=== PATIENT | female | born 1965 | race American Indian/Alaskan Native ===

== ENCOUNTER 2018-05-24 10:51 | Emergency (ER) | payer OTHER ==
[2018-05-24 11:50] VITALS: BP 188/104
--- NOTE | 2018-05-24 13:31 | Emergency Department Report ---
ED Anxiety HPI - General Chief Complaint: Anxiety Stated Complaint: PANIC ATTACK Time Seen by Provider: 05/24/18 13:16 Source: patient Mode of arrival: Wheelchair - History of Present Illness Initial Comments: 53 yo F presents w/ panic attack. States she thought her daughter had gone missing. Was unable to get in touch with her, did not know where she was. Pt reports she began hyperventilating, feeling as if she could not breathe. Also states felt as if her heart was racing. Reports feeling lighteheaded and pressure in the top of her head. Eventually pt found her daughter here in the emergency room. States that now that she knows her daughter is safe, her symptoms have resolved. Reports previous hx of anxiety attack. MD Complaint: anxiety -: This morning Symptoms: dyspnea, palpitations, sense of impending doom, other (dizziness, headache) Previous History of Same: Yes Severity: moderate Quality: improving Provoking factors: emotional stress Improves With: nothing Worsens With: thinking about event Associated symptoms: denies: chest pain, diaphoresis, nausea/vomiting - Related Data Allergies/Adverse Reactions: Allergies Allergy/AdvReac Type Severity Reaction Status Date / Time latex Allergy Itching Verified 05/24/18 11:46 Sulfa (Sulfonamide Allergy Swelling Verified 05/24/18 11:46 Antibiotics) ED Review of Systems ROS: Stated complaint: PANIC ATTACK Other details as noted in HPI Comment: All other systems reviewed and negative Respiratory: shortness of breath Cardiovascular: palpitations. denies: chest pain Gastrointestinal: denies: nausea, vomiting Neurological: headache, other (lightheadedness) ED Past Medical Hx - Past Medical History Previous Medical History?: Yes Hx Hypertension: Yes Hx Arthritis: Yes Additional medical history: PANIC ATTACKS - Surgical History Hx Cholecystectomy: Yes Additional Surgical History: C SECTION - Social History Smoking Status: Never Smoker Substance Use Type: None ED Physical Exam - General Limitations: No Limitations ED Course Vital Signs 05/24/18 05/24/18 11:46 12:59 Temperature 98.6 F Pulse Rate 100 H Respiratory 18 16 Rate Blood Pressure 188/104 O2 Sat by Pulse 100 Oximetry ED Medical Decision Making - EKG Data -: EKG Interpreted by Me EKG shows normal: sinus rhythm, axis (nml), intervals (prolonged CT), QRS complexes (nml), ST-T waves (T wave inversion V2, otherwise nml) Rate: tachycardia - EKG Data Interpretation: no acute changes, LVH, other (left atrial enleargement) - Medical Decision Making 53 yo F s/p anxiety attack due to emotional stress. Pt feeling much better at this time. All sx's have resolved. BP elevated, hoever, EKG nml. Advised PCP follow-up - Differential Diagnosis anxiety, essential HTN, ACS Critical care attestation.: If time is entered above; I have spent that time in minutes in the direct care of this critically ill patient, excluding procedure time. ED Disposition Clinical Impression: Anxiety Disposition: DC-01 TO HOME OR SELFCARE Is pt being admited?: No Condition: Stable Instructions: Anxiety (ED) Referrals: PRIMARY CARE, [Primary Care Provider] - 3-5 Days
== END 2018-05-24 14:05 | disposition home or self-care (01) ==
LOC: ED 10:51
DX: F41.9 Anxiety disorder, unspecified (principal); I10 Essential (primary) hypertension; M19.90 Unspecified osteoarthritis, unspecified site; Z90.49 Acquired absence of other specified parts of digestive tract; Z91.040 Latex allergy status; Z88.2 Allergy status to sulfonamides
CPT/HCPCS: 93005; 93010; 99282

== ENCOUNTER 2020-10-18 21:15 | Emergency (ER) | payer MEDICAID, OTHER ==
--- NOTE | 2020-10-18 21:24 | Event Note ---
ED Screening Note Date of service: 10/18/20 Time: 21:23 ED Screening Note: Patient 55-year-old -[place] female with a history of morbid obesity anxiety and GERD who presents for abdominal pain radiating to bilateral flank times today. Patient states periods of intermittent nausea without vomiting. He does endorse eating leftover food 2 days ago that which exacerbated symptoms. There is been no fever or chills. Last p.o. intake 2 days ago. This initial assessment/diagnostic orders/clinical plan/treatment(s) is/are subject to change based on patients health status, clinical progression and re- assessment by fellow clinical providers in the ED. Further treatment and workup at subsequent clinical providers discretion. Patient/guardian urged not to elope from the ED as their condition may be serious if not clinically assessed and managed. Initial orders include: CMP, CBC, UA, Lipase
[2020-10-18 21:45] LABS: Basophils # (Auto) 0.1 K/mm3 (0.0-0.1); Basophils % (Auto) 0.5 % (0.0-1.8); Eosinophils # (Auto) 0.4 K/mm3 (0.0-0.4); Eosinophils % (Auto) 3.8 % (0.0-4.3); Hematocrit 39.5 % (30.3-42.9); Hemoglobin 13.3 gm/dl (10.1-14.3); Lymphocytes # (Auto) 2.5 K/mm3 (1.2-5.4); Lymphocytes % (Auto) 26.1 % (13.4-35.0); Mean Corpuscular HGB Conc 34 % (30-34); Mean Corpuscular Volume 88 fl (79-97); Monocytes # (Auto) 0.6 K/mm3 (0.0-0.8); Monocytes % (Auto) 6.7 % (0.0-7.3); Platelet Count 312 K/mm3 (140-440); Red Blood Count 4.49 M/mm3 (3.65-5.03)
[2020-10-18 22:06] LABS: Alanine Aminotransferase 27 units/L (7-56); Albumin 4.3 g/dL (3.9-5); BUN/Creatinine Ratio 12; Blood Urea Nitrogen 11 mg/dL (7-17); Calcium 9.3 mg/dL (8.4-10.2); Hemolysis Index 0
--- NOTE | 2020-10-19 02:51 | Emergency Department Report ---
ED Abdominal Pain HPI - General Chief Complaint: Abdominal Pain Stated Complaint: ABDOMINAL PAIN/BACK PAIN/SWOLLEN FINGERS PUI?: No Source: patient Mode of arrival: Ambulatory Limitations: No Limitations - History of Present Illness Initial Comments: Patient is a 55-year-old emergency room with complaints of abdominal pain. Patient states he pain is patient states although. Patient better with rest and worse with movement and palpation. Patient states she is also having back pain. Patient states she has a history of back pain but the back pain has increased. Patient states she has not taken any medications. New problem. Patient denies nausea and vomiting and diarrhea. Patient denies fever and chills. Patient states she is having a lot of abdominal cramping. Patient states that he the pain is a 10 out of 10. Patient states that back pain is a 10 out of 10. Patient denies dysuria. Patient denies fever and chills. Patient denies nausea and vomiting. Patient denies recent travel. Patient denies recent international travel. Ron poole denies exposure to the novel coronavirus. Patient denies sick contacts. Patient denies fever and chills. Patient denies cough. Patient denies diarrhea. Patient denies coming in contact with anybody with symptoms of the novel coronavirus. MD Complaint: abdominal pain -: Sudden Location: LUQ, RUQ, epigastric Radiation: none Migration to: no migration Severity: severe Severity scale (0 -10): 10 Quality: stabbing Consistency: constant Improves With: rest Worsens With: movement Context: possible food poisoning Associated Symptoms: denies other symptoms. denies: nausea, vomiting, diarrhea, fever, chills, constipation, dysuria, hematemesis, hematochezia, melena, hematuria, anorexia, syncope - Related Data LMP (females 10-50): unknown Previous Rx's Medication Instructions Recorded Last Taken Type Ciprofloxacin HCl [Ciprofloxacin 500 mg PO Q12HR 10 Days #20 tab 10/19/20 Unknown Rx TAB] Allergies Allergy/AdvReac Type Severity Reaction Status Date / Time latex Allergy Itching Verified 05/24/18 11:46 Sulfa (Sulfonamide Allergy Swelling Verified 05/24/18 11:46 Antibiotics) ED Review of Systems ROS: Stated complaint: ABDOMINAL PAIN/BACK PAIN/SWOLLEN FINGERS Other details as noted in HPI Constitutional: denies: chills, fever Eyes: denies: eye pain, eye discharge, vision change ENT: denies: ear pain, throat pain Respiratory: denies: cough, shortness of breath, wheezing Cardiovascular: denies: chest pain, palpitations Endocrine: no symptoms reported Gastrointestinal: abdominal pain. denies: nausea, diarrhea Genitourinary: denies: urgency, dysuria, discharge Musculoskeletal: as per HPI, back pain. denies: joint swelling, arthralgia Skin: denies: rash, lesions Neurological: denies: headache, weakness, paresthesias Psychiatric: denies: anxiety, depression Hematological/Lymphatic: denies: easy bleeding, easy bruising ED Past Medical Hx - Past Medical History Previous Medical History?: Yes Hx Hypertension: Yes Hx Arthritis: Yes Additional medical history: PANIC ATTACKS - Surgical History Past Surgical History?: Yes Hx Cholecystectomy: Yes Additional Surgical History: C SECTION - Family History Family history: no significant - Social History Smoking Status: Never Smoker Substance Use Type: None - Medications Home Medications: Home Medications Medication Instructions Recorded Confirmed Last Taken Type Ciprofloxacin HCl [Ciprofloxacin 500 mg PO Q12HR 10 Days #20 tab 10/19/20 Unknown Rx TAB] ED Physical Exam - General Limitations: No Limitations General appearance: alert, in no apparent distress - Head Head exam: Present: atraumatic, normocephalic - Eye Eye exam: Present: normal appearance - ENT ENT exam: Present: mucous membranes moist - Neck Neck exam: Present: normal inspection - Respiratory Respiratory exam: Present: normal lung sounds bilaterally. Absent: respiratory distress - Cardiovascular Cardiovascular Exam: Present: regular rate, normal rhythm. Absent: systolic murmur, diastolic murmur, rubs, gallop - GI/Abdominal GI/Abdominal exam: Present: soft, tenderness (Bilateral upper quadrant tenderness to palpation.), normal bowel sounds. Absent: distended, guarding - Extremities Exam Extremities exam: Present: normal inspection - Back Exam Back exam: Present: normal inspection - Neurological Exam Neurological exam: Present: alert, oriented X3 - Psychiatric Psychiatric exam: Present: normal affect, normal mood - Skin Skin exam: Present: warm, dry, intact, normal color. Absent: rash ED Course Vital Signs 10/18/20 10/19/20 21:23 02:50 Temperature 98.1 F 98.4 F Pulse Rate 100 H 91 H Respiratory 18 18 Rate Blood Pressure 166/86 Blood Pressure 149/70 [Left] O2 Sat by Pulse 100 100 Oximetry - Reevaluation(s) Reevaluation #1: Patient states her pain is better. I discussed all results and clinical findings with patient. I discussed plan of care with patient. Patient agrees with plan of care. Patient is stable for discharge. Patient will be discharged home. Patient given discharge instructions. Patient voiced understanding of discharge instructions. 10/19/20 05:30 ED Medical Decision Making - Lab Data Result diagrams: 10/18/20 21:29 10/18/20 21:29 - Radiology Data Radiology results: report reviewed CT OF THE ABDOMEN AND PELVIS WITH INTRAVENOUS CONTRAST INDICATION / CLINICAL INFORMATION: Pain in the left upper and right upper quadrant. Back pain. TECHNIQUE: The patient received 100 cc Omnipaque [address] scans at this location are performed using CT dose reduction for ALARA by means of automated exposure control. COMPARISON: None available. FINDINGS: ABDOMEN: The gallbladder is not identified. The liver measures 20 cm in length and demonstrates mild diffuse decreased density compared to the spleen. The spleen, bile ducts, pancreas, adrenal glands and bowel are normal. There are a couple of small simple renal cysts bilaterally. No adenopathy is seen. The lung bases are clear. PELVIS: The distal ureters and urinary bladder are normal. The uterus and ovaries are unremarkable. A normal appendix is present and there is no evidence of diverticulitis. No abnormal mass or fluid collection is seen. I do not identify a hernia. There is mild degenerative disc disease at L2-3. IMPRESSION: 1. No acute abnormality is identified. 2. Mild hepatomegaly with mild diffuse fatty infiltration. - Medical Decision Making Patient is a 55-year-old female that presents emergency room with complaints of abdominal pain and back pain. Patient denied nausea, vomiting, diarrhea. Patient had labs done which were essentially unremarkable except for UTI. Patient had a CT scan of the abdomen to rule out gallbladder findings, no other acute findings. Patient CT scan of the abdomen was negative for acute findings. Patient will be given antibiotics for UTI. Patient is stable for discharge. Patient be discharged home. - Differential Diagnosis Abdominal pain, UTI, cholelithiasis, back pain, gastroenteritis Critical care attestation.: If time is entered above; I have spent that time in minutes in the direct care of this critically ill patient, excluding procedure time. ED Disposition Clinical Impression: Gastroenteritis Abdominal pain Qualifiers: Abdominal location: upper abdomen, unspecified Qualified Code(s): R10.10 - Upper abdominal pain, unspecified Back pain Qualifiers: Back pain location: low back pain Chronicity: chronic Back pain laterality: midline Sciatica presence: without sciatica Qualified Code(s): M54.5 - Low back pain; G89.29 - Other chronic pain UTI (urinary tract infection) Qualifiers: Urinary tract infection type: acute cystitis Hematuria presence: with hematuria Qualified Code(s): N30.01 - Acute cystitis with hematuria Disposition: TO HOME OR SELFCARE Is pt being admited?: No Does the pt Need Aspirin: No Condition: Stable Instructions: Abdominal Pain (ED), Abdominal Pain, Adult, Food Choices to Help Relieve Diarrhea, Adult, Back Injury Prevention, Chronic Back Pain, Urinary Tract Infection, Adult Additional Instructions: Patient to follow-up with primary care in 2 to 3 days. Patient to follow-up with orthopedist in 2 to 3 days. Patient to rest. Patient to increase water. Patient to avoid strenuous exercise or heavy lifting until cleared by primary care. Patient to take Tylenol or ibuprofen as needed for pain. Patient to take meds as directed. Patient to return to the ER if condition worsens, changes or new symptoms arise. Prescriptions: Ciprofloxacin HCl [Ciprofloxacin TAB] 500 mg PO Q12HR 10 Days #20 tab Referrals: PRIMARY CARE, [Primary Care Provider] - 2-3 Days Time of Disposition: 05:30
[2020-10-19 02:52] VITALS: BP 149/70
[2020-10-19 02:57] LABS: Bacteria,Urine 1+ /HPF (Negative); Bilirubin,Urine NEG (Negative); Blood,Urine NEG (Negative); Color,Urine Yellow (Yellow); Mucus,Urine FEW /HPF; Urobilinogen,Urine < 2.0 mg/dL (<2.0)
--- NOTE | 2020-10-19 04:23 | Cat Scan Report ---
CT OF THE ABDOMEN AND PELVIS WITH INTRAVENOUS CONTRAST INDICATION / CLINICAL INFORMATION: Pain in the left upper and right upper quadrant. Back pain. TECHNIQUE: The patient received 100 cc Omnipaque [address] scans at this location are performed using CT dose reduction for ALARA by means of automated exposure control. COMPARISON: None available. FINDINGS: ABDOMEN: The gallbladder is not identified. The liver measures 20 cm in length and demonstrates mild diffuse decreased density compared to the spleen. The spleen, bile ducts, pancreas, adrenal glands an d bowel are normal. There are a couple of small simple renal cysts bilaterally. No adenopathy is seen . The lung bases are clear. PELVIS: The distal ureters and urinary bladder are normal. The uterus and ovaries are unremarkable. A normal appendix is present and there is no evidence of diverticulitis. No abnormal mass or fluid col lection is seen. I do not identify a hernia. There is mild degenerative disc disease at L2-3. IMPRESSION: 1. No acute abnormality is identified. 2. Mild hepatomegaly with mild diffuse fatty infiltration. Signer Name: Nathan Jhaveri MD Signed: 10/19/2020 4:19 AM Workstation Name: [id number]
== END 2020-10-19 05:57 | disposition home or self-care (01) ==
LOC: ED 21:15
DX: N39.0 Urinary tract infection, site not specified (principal); K52.9 Noninfective gastroenteritis and colitis, unspecified; M54.6 Pain in thoracic spine; R10.13 Epigastric pain; I10 Essential (primary) hypertension; M19.91 Primary osteoarthritis, unspecified site; Z90.49 Acquired absence of other specified parts of digestive tract; Z98.890 Other specified postprocedural states; Z79.2 Long term (current) use of antibiotics; Z88.2 Allergy status to sulfonamides; Z91.040 Latex allergy status
CPT/HCPCS: 36415; 74177; 80053; 81001; 83690; 85025; 87086; 99284; Q9967